=== PATIENT | male | born 1950 ===

== ENCOUNTER 2020-07-03 10:10 | Emergency (ER) | payer OTHER ==
[2020-07-03 12:29] LABS: HEMOGLOBIN 16.1 gm/dl (14.0-17.5); RED BLOOD COUNT 5.46 M/UL (4.20-5.50); WHITE BLOOD COUNT 5.7 K/UL (4.5-11.0)
[2020-07-03 13:02] LABS: BUN/CREATININE RATIO 17 (0-10)
== END 2020-07-03 17:34 | disposition home or self-care (01) ==
LOC: ER1 10:10
PROVIDERS: Emergency Medicine
DX: U07.1 COVID-19 (principal); J12.82 Pneumonia due to coronavirus disease 2019; Z23 Encounter for immunization
CPT/HCPCS: 71045; 80053; 82550; 82553; 83874; 84484; 85025; 85379; 86140; 99284; J2405; M0239